=== PATIENT | female | born 1970 | race African-American/Black ===

== ENCOUNTER → 2017-04-20 | Outpatient (CLI) | payer BC, OTHER ==
[~2017-04-20] MED LIST: ASPIR 8181 MG PO; CIPROFLOXACIN500 M1 PO; CO Q-1010 MG PO; ECHINACEA125 MG PO; IBUPROFEN 600600 M1 PO; MAGNESIUM OXID400 MG PO; MAXZIDE-25 MG1 EACH; MULTIVITAMINS1 EAC7 PO; NORCO 5-325 TA1 EACH PO; ONDANSETRON HCL4 M2 PO; POTASSIUM20 PO; ST. JOHN'S WOR150 MG PO; TRIAMTERENE/HCT1 CA1; VITAMIN D31000 UNI2 PO
== END ==
LOC: RAD 14:22
DX: Z12.31 Encounter for screening mammogram for malignant neoplasm of breast (principal)

== ENCOUNTER → 2018-05-15 | Outpatient (CLI) | payer OTHER | LOC: RAD 14:04 | DX: Z12.31 Encounter for screening mammogram for malignant neoplasm of breast (principal) ==

== ENCOUNTER → 2019-05-12 | Outpatient (CLI) | payer OTHER | LOC: BC 11:36 | DX: Z12.31 Encounter for screening mammogram for malignant neoplasm of breast (principal) ==

== ENCOUNTER → 2019-08-22 | Outpatient (CLI) | payer OTHER | LOC: ULTRA 08-06 08:55 | DX: M79.604 Pain in right leg (principal); M79.605 Pain in left leg; R22.43 Localized swelling, mass and lump, lower limb, bilateral ==

== ENCOUNTER → 2020-05-17 | Outpatient (CLI) | payer OTHER | LOC: RAD 09:54 | PROVIDERS: ATTEND Internal Medicine Geriatric Medicine | DX: Z12.31 Encounter for screening mammogram for malignant neoplasm of breast (principal) ==

== ENCOUNTER → 2021-05-11 | Outpatient (CLI) | payer OTHER | LOC: RAD 11:31 | PROVIDERS: ATTEND Obstetrics & Gynecology | DX: Z12.31 Encounter for screening mammogram for malignant neoplasm of breast (principal); N64.89 Other specified disorders of breast ==